=== PATIENT | male | born 2005 | race Caucasian/White ===

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

== ENCOUNTER 2024-01-07 14:40 | Emergency (ER) | payer MEDICAID, SELFPAY ==
[2024-01-07 14:48] VITALS: BP 152/83; PULSE 110; RESP 16; TEMP 38.3; O2SAT 96
--- NOTE | 2024-01-07 15:06 | W.ED.GENAD ---
Discharge Plan Disposition Patient Disposition: Home Condition: Stable Discharge Details Clinical Impression: Groin rash Primary Care Provider: Unknown,Unknown ED Provider: Veronica Agudelo Home Meds and New Rx's Prescriptions: No Action No Known Home Meds Discharge Instructions Instructions: Skin Rash ED Additional Instructions: You were seen in the emergency department today for evaluation of a groin rash and for STI testing. In our department you have a full physical examination performed, your rash is most concerning for a friction type rash, it does not appear consistent with herpes virus. Your STI testing will take several days to result, and I have provided you with a referral to establish with a primary care provider to review the results of these tests with you. You can utilize an ointment to reduce friction in that area, I recommend Vaseline or Aquaphor. I do recommend that if you continue to engage in sexual intercourse that you utilize a barrier method to prevent the spread of STIs. You had a low-grade fever today in the emergency department that resolved with medication, please monitor for symptoms and follow-up with your primary care provider with any concerns. Thank you for allowing us to be part of your care. HPI General Mode of arrival: ambulatory. Date/Time Provider Initiated Documentation: 01/07/24 14:42. Limitations to Documentation: no limitations. Information obtained by: patient and old records reviewed. HPI Narrative: HPI: This is a 18-year-old male patient without significant past medical history presenting for evaluation of a groin rash. The patient reports that this rash has been present for the last 2 to 3 weeks, is located on the inner aspect of his bilateral thighs. He reports that he presented to care for STI evaluation, as he is concerned because the person that he had sex with is reported to him by other people as being positive for herpes. He reports that he has not noted any vesicular or weeping lesions. He has not had any penile discharge, dysuria, or penile lesions. He states that he has had sex with 4 different women over the last few months, does not utilize barrier protection. the patient was noted incidentally to be mildly tachycardic and of a low-grade temperature in our triage office, states that he does not feel unwell, and specifically denies headache, stuffy or runny nose, sore throat, shortness of breath, cough, or abdominal pain. The patient reports that he occasionally will shave his genital region, does not utilize any creams or ointments. He has not tried any barrier creams for the rash on his thighs. Exam: Gen: Awake and alert, in no apparent distress HEENT: Non-icteric sclera Neck: Supple Lungs: No apparent respiratory distress, normal respiratory effort. CV: Appears well perfused Abdomen: Non-distended : Normal external male genitalia, bilaterally descended testicles that are nontender. The patient does have a flesh-colored raised papule on his left scrotum that he reports is baseline. He has a fine red rash, which appears similar to a friction rash on his bilateral thighs. There are no vesicular lesions, ulcerations, nor inguinal lymphadenopathy appreciated. MSK: Moves 4 extremities without apparent limitation in ROM Skin: Visualized skin without rashes, cyanosis. Neuro: Normal Gait, no obvious focal deficits or facial asymmetry. Speaks in full, clear sentences. Psych: Appropriate for situation. MDM: This is a 18-year-old male patient presenting for evaluation for STI screening for a groin rash. I am most concerned for a friction rash versus folliculitis. I certainly considered sexually transmitted infections, including herpes, syphilis, HIV, gonorrhea, and chlamydia. The patient's mild tachycardia and fever are not connected with any localizing symptoms to suggest urinary tract infection, viral upper respiratory infection. The patient has been eating and drinking normally, making metabolic and electrolyte derangements, kidney injury less likely. We will obtain laboratory screening for HIV and syphilis, as well as a gonorrhea and chlamydia test. I did provide the patient with a dose of Tylenol for symptomatic management of pain. I do not see any indication at this time for additional laboratory studies given the patient's asymptomatic nature. ED Course: I recommended that the patient utilize a barrier ointment such as Aquaphor or Vaseline on the irritated areas. I did recommend barrier protection during sex, and did provide the patient with a PCP referral for routine follow-up. We rechecked to the vital signs, and the patient's low-grade fever and tachycardia have already resolved despite only recently being administered antipyretics. At this time, the patient has had a full medical evaluation and is safe for discharge to home. They are hemodynamically stable, ambulatory, and tolerating PO. They are understanding of the follow-up plan and return precautions. They left our facility without incident. Veronica Agudelo MD Related Data Home Medications ?Medication ?Instructions ?Recorded ?Confirmed Unknown [No Known Home Meds] 12/05/21 01/07/24 Allergies Allergy/AdvReac Type Severity Reaction Status Date / Time lactose AdvReac Mild affects Unverified 01/07/24 14:52 bowels per mom General Stated Complaint: GenMedical YASMINE: 4 Course Vital Signs Vital signs: Vital Signs Temperature 38.3 C H 01/07/24 14:48 Pulse 110 H 01/07/24 14:48 Respiratory Rate 16 01/07/24 14:48 Blood Pressure 152/83 H 01/07/24 14:48 Pulse Oximetry 96 01/07/24 14:48 Temperature 38.3 C H 01/07/24 14:48 Pulse 110 H 01/07/24 14:48 Respiratory Rate 16 01/07/24 14:48 Respiratory Effort Normal 01/07/24 14:53 Blood Pressure 152/83 H 01/07/24 14:48 Pulse Oximetry 96 01/07/24 14:48 Oxygen Delivery Method Room Air 01/07/24 14:48 Oxygen Flow Rate 0 01/07/24 14:48 Pain Level 0 01/07/24 14:48 Medical Decision Making Quality:SDOH Health Related Social Needs: No Data to Display PFSH All Active Problems (Updated 01/07/24 @ 15:21 by Veronica Agudelo MD) Groin rash (Acute) Marijuana use (Acute) Difficulty controlling anger (Acute) Constipation (Acute) Alcohol use (Chronic) Caught drinking alcohol in the spring 2020- expelled from [facility]; was arrested and entered into diversion (will be meeting with counselor instead of paying fines) Family discord (Chronic) Engages in vaping (Chronic) Wheezing (Acute) Varicocele (Chronic) Followed by Urology yearly- last visit Apr 2020; no surgical intervention recommended at this time Learning difficulty (Chronic 01/19/12) Unclear if he has had an IEP for additional instruction; failed 10th grade and was expelled from [facility] [facility] Lactose intolerance (Chronic 11/21/17) Dental caries (Chronic 01/19/12) Surgical History Appendectomy Appendicitis History of Surgical Procedure a. Appendectomy lap. 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
[2024-01-07 15:17] VITALS: BP 144/74; PULSE 96; RESP 16; TEMP 37.3; O2SAT 97
[2024-01-07] MEDS: Acetaminophen 500 MG TAB 1000 MG PO (16:27)
[2024-01-07 16:31] VITALS: BP 144/74; PULSE 76; RESP 16; TEMP 37.3; O2SAT 97
[2024-01-07 16:33] VITALS: BP 144/74; PULSE 76; RESP 16; TEMP 37.3; O2SAT 97
[2024-01-08 19:28] LABS: HIV-1/2 Ag & Ab Screen Negative (Negative)
[2024-01-09 11:07] LABS: Syphilis Serology (RPR) Positive (Negative)
[2024-01-09 12:23] LABS: Chlamydia Result Negative (Negative); GC Result Negative (Negative)
[2024-01-11 11:51] LABS: RPR w/Reflex Negative (Negative)
[2024-01-11 16:08] LABS: Syphilis Ab, TP-PA Negative (Negative)
== END 2024-01-07 16:34 | disposition home or self-care (01) ==
PROVIDERS: Emergency Provider Emergency Medicine
DX: R21 Rash and other nonspecific skin eruption (principal); R50.9 Fever, unspecified; Z20.2 Contact with and (suspected) exposure to infections with a predominantly sexual mode of transmission
CPT/HCPCS: 0064U; 86780; 87389; 87491; 87591; 99282; 86592; 99283

== ENCOUNTER 2024-07-26 15:13 | Outpatient (REF) | payer SELFPAY ==
[2024-07-29 12:48] LABS: Chlamydia Result Negative (Negative); GC Result Negative (Negative)
== END 2024-07-26 15:14 | disposition home or self-care (01) ==
LOC: LBN 15:13
PROVIDERS: Visit Provider Urology
DX: Z20.2 Contact with and (suspected) exposure to infections with a predominantly sexual mode of transmission (principal); I86.1 Scrotal varices
CPT/HCPCS: 87491; 87591

== ENCOUNTER 2024-12-16 15:20 | Inpatient (IN) | payer SELFPAY ==
[2024-12-16] VITALS (49 sets, daily range): BP systolic 127–156; BP diastolic 58–103; PULSE 54–127; RESP 9–34; TEMP 36.6–37; O2SAT 85–100
--- NOTE | 2024-12-16 15:46 | W.ED.GENAD ---
Discharge Plan Disposition Patient Disposition: Admit to [facility] Condition: Stable Discharge Details Clinical Impression: Alcohol withdrawal, Hypophosphatemia, Hypomagnesemia, Lactic acidosis Primary Care Provider: Unknown,Unknown ED Provider: Jose Sanchez Home Meds and New Rx's Prescriptions: No Action No Known Home Meds HPI General Date/Time Provider Initiated Documentation: 12/16/24 15:38. HPI Narrative: 19 year-old male presents to ED today by POV/ambulating with his girlfriend with a chief complaint of abdominal pain, nausea/vomiting, alcohol withdrawal with onset over the past couple days- last drink last night at 0100- states he's had 1.5gal of hard alcohol in the last 3 days. Has been drinking daily for a couple years. Quality described as shakiness, intractable vomiting, RUQ abdominal pain, no radiation to fever, witnessed seizure-like activity, shortness of breath, chest pain, dysuria, flank pain. Severity is described as 10/10. Palliating factors include nothing specific attempted- he did cessate smoking weed which is also a daily habit since Monday. Provoking factors include PO intake. Patient not anticoagulated. Related Data Home Medications ?Medication ?Instructions ?Recorded ?Confirmed Unknown [No Known Home Meds] 12/05/21 12/16/24 Allergies Allergy/AdvReac Type Severity Reaction Status Date / Time lactose AdvReac Mild affects Unverified 12/16/24 15:29 bowels per mom General Stated Complaint: Abd Prob YASMINE: 3 Review of Systems All systems reviewed & are unremarkable except as noted in HPI and below Exam Narrative Exam Narrative: GENERAL APPEARANCE: Malnourished, toxic, awake and alert, atraumatic, moderate acute distress- active retching. SKIN: Warm, pale, diaphoretic, intact, without rashes/lesions/ulcerations. HEAD: Normocephalic, atraumatic, normal hair distribution for gender/age. EYES: Normal conjunctiva, no exudates on lids/lashes. ENT: Nares patent, no circumoral cyanosis, no facial swelling NECK: Supple, trachea midline, painless cervical ROM. LUNGS/CHEST: Lungs CTA bilaterally- no rhonchi/rales/wheezes diffusely, non-labored respirations, normal A/P diameter, symmetrical expansion, no chest wall deformity HEART (CV/PV): Regular rate and rhythm without murmur, no peripheral edema, no JVD. ABDOMEN: Soft, non-distended, no guarding, RUQ tenderness w/ Barahona's sign, no CVA tenderness to percussion bilaterally. MSK: Normal ROM, no swelling/deformity to bilateral UEs or LEs, moving all extremities without weakness, no cyanosis, spine midline without tenderness, normal curvature. NEURO: Mental Status AAOx4 - alert to person, place, time, events No facial droop, no forehead involvement. Motor: No focal weakness - strength 5/5 in bilateral UEs and LEs, proximal and distal, symmetric. Sensory: sensation intact to light touch globally. Gait normal: patient ambulated without ataxia into ED room. PSYCH: dysthymic, cooperative, pleasant, appropriate speech Course Vital Signs Vital signs: Vital Signs Temperature 36.8 C 12/16/24 15:23 Pulse 127 H 12/16/24 15:23 Respiratory Rate 20 12/16/24 15:23 Blood Pressure 133/83 12/16/24 15:23 Pulse Oximetry 98 12/16/24 15:23 Temperature 36.8 C 12/16/24 15:27 Pulse 127 H 12/16/24 15:27 Respiratory Rate 20 12/16/24 15:27 Blood Pressure 133/83 12/16/24 15:27 Blood Pressure Position Sitting 12/16/24 15:27 Pulse Oximetry 98 12/16/24 15:27 Oxygen Delivery Method Room Air 12/16/24 15:27 Oxygen Flow Rate 0 12/16/24 15:27 Medical Decision Making This dictation utilizes [id number] dictation software and may contain unedited grammatical errors. 19 year-old male presents to ED today by POV/ambulating with his girlfriend with a chief complaint of abdominal pain, nausea/vomiting, alcohol withdrawal with onset over the past couple days- last drink last night at 0100- states he's had 1.5gal of hard alcohol in the last 3 days. Has been drinking daily for a couple years. Quality described as shakiness, intractable vomiting, RUQ abdominal pain, no radiation to fever, witnessed seizure-like activity, shortness of breath, chest pain, dysuria, flank pain. Severity is described as 10/10. Palliating factors include nothing specific attempted- he did cessate smoking weed which is also a daily habit since Monday. Provoking factors include PO intake. Patients' medical history: Marijuana use, alcohol use disorder, varicocele. Family and social history: Daily heavy alcohol use, daily marijuana use, denies other substance use. Pertinent exam findings / vital signs include no delerium tremens, RUQ abdominal tenderness, + Barahona's sign, tachypneic without hypoxia, neuro intact. Differential / pathologies of concern include alcohol withdrawal, biliary colic, pancreatitis. Diagnostic studies of: -CBC, BMP, liver panel, CK, magnesium, phosphorus, lactate, lipase & amylase, VBG, troponin, alcohol level, acetaminophen/salicylate level, ammonia, EKG, CT ABD/Pelvis w Contrast. -CBC has a leukocytosis of 16.89 without left shift - CMP shows creatinine of 1.4 likely in setting of dehydration, calcium 10.5 likely in setting of hemoconcentration, anion gap of 16 - Magnesium 1.3, repleted IV - Liver panel shows elevated bilirubin at 2.0 with 0.4 conjugated bilirubin, LFTs otherwise within normal limits - Ammonia negative - Amylase and lipase negative - Salicylates and acetaminophen levels negative - Alcohol level negative - VBG shows a respiratory alkalosis likely due to his hyperventilation - Lactate 4.4 likely in the setting of acute intractable vomiting - Phos < 2 - CT ABD/Pelvis w contrast shows distended gallbladder without overt cholecystitis, no pancreatitis, incidental finding of cystic area in testes- has known variocele, needs PCP/Urology monitoring - EKG shows sinus rhythm at 73 bpm with P waves followed by a narrow complex QRS, normal axis, good R wave progression, some peaked T waves but likely due to body habitus being quite thin, normal intervals, no ST changes of ischemia no T wave inversions -UDS & UA pending Interventions of: -1L IVF Banana Bag, 4mg IVP Zofran, 5mg IVP valium, QID [id number], 2mg IV magnesium. -CIWA q1hr - intial was 20 -1g IV APAP, 15mg IVP ketorolac -Consult with Hospitalist Dr. Hanks for admission, accepted at 1900- ICU on phenobarbital drip ED Course/Assessment/Plan: 19-year-old male with alcohol use disorder for couple years has had 1.5 gallons of hard liquor in the past 3 days, last drink 0100 hrs., awoke this morning with intractable nausea and vomiting severe abdominal pain right upper quadrant, assumed he had pancreatitis quite severely but his lipase and amylase are normal, he has mildly elevated bilirubin at 2.0 with slight elevation of conjugated bilirubin that will likely resolve with time, his initial CIWA was 20 warranting admission to the hospital, I trialed him on IVP 5 mg Valium as we are out of Ativan due to drug shortage, he received antiemetics, electrolyte repletion and conservative pain control while in the department, discussed with hospitalist who accepted for admission to ICU, patient was open to consulting with job coach while here. He has an incidental finding on his CT of a cystic area in the testicles that warrants routine surveillance with a note in his history that he has a history of varicocele that is followed by urology, these may be the same finding. Disposition of Alcohol Withdrawal, Hypophosphatemia, Hypomagnesemia, Lactic Acidosis. Patient verbalized understanding of the plan and return to ED criteria and engaged in shared decision making. Medical Records Medical records reviewed: Yes I reviewed the patient's medical records. Imaging Data Radiologic Study: Attestation: I personally reviewed and interpreted this imaging study as follows: Imaging: CT Scan Radiologist's impression: EXAM: CT ABDOMEN PELVIS W CLINICAL HISTORY: RUQ tenderness. TECHNIQUE: Imaging Protocol: Axial computed tomography images with coronal and sagittal reformatted images were created and reviewed CONTRAST MATERIAL: Intravenous: Omnipaque-350 75cc Oral: None COMPARISON: No exams were available for comparison FINDINGS: VISUALIZED LUNG BASES: No nodules nor pleural effusions evident. ABDOMEN: There is no ascites. LIVER: There are no focal hepatic lesions evident. No dilated intrahepatic ducts. GALLBLADDER/BILIARY: Gallbladder is mildly distended. No obvious intraluminal gallstones nor gallbladder wall edema nor pericholecystic fluid. CBD is not dilated. PANCREAS: No evidence of pancreatic mass nor dilatation of the pancreatic duct. SPLEEN: Spleen is not enlarged. No obvious intrasplenic lesions. Splenic and portal veins are patent. ADRENALS: There are no significant adrenal masses. KIDNEYS:No cysts evident. No solid renal masses. No calculi nor hydronephrosis.. ABDOMINAL AORTA: Abdominal aorta is not enlarged. LYMPH NODES:There is no retroperitoneal nor paraaortic adenopathy. ABDOMINAL WALL: No evidence of significant anterior abdominal wall nor inguinal hernia. GI: There is no evidence of bowel obstruction, free air, nor abscess. PELVIS: GI: The appendix is difficult to identify is a separate structure. There is no obvious evidence of acute appendicitis.Also there is significant sigmoid diverticular disease. LYMPH NODES: There is no intrapelvic nor inguinal adenopathy. REPRODUCTIVE: Prostate size normal. Seminal vesicles unremarkable.x incidentally noted is a probable extratesticular cystic structure in the left hemiscrotum which measures 1.5 by 1.5 cm. This probably in epididymal head cyst URINARY BLADDER: No calculi nor obvious masses evident OSSEOUS: No fractures and no significant osseous lesions. No disc space narrowing. No listhesis. No facet arthropathy. IMPRESSION: 1. In this patient with right-sided abdominal pain the gallbladder slightly distended. No obvious radiopaque gallstones nor pericholecystic fluid. CBD is not dilated. If clinically indicated follow-up ultrasound the gallbladder can be performed. 2. There is a 15 x 15 mm cystic structure in the left hemiscrotum. This is probably an epididymal head cyst but should be further studied with the scrotal ultrasound for added specificity. 3. The appendix is not seen-identified. There is no evidence of obvious acute appendicitis. 4. No urinary tract calculi identified. No hydronephrosis. No hydroureter. No calculi nor other significant findings in the urinary bladder. Report called by myself to ER provider on 12/16/2024 at 6:18 p.m. Lab Data Lab results reviewed: Yes I reviewed the patient's lab results. Labs: Laboratory Tests Range/Units 12/16/24 12/16/24 12/16/24 16:08 16:15 16:48 WBC (4.4-10.8) 10^3/uL 16.89 H RBC (4.36-5.78) 10^6/uL 5.09 Hgb (13.5-17.5) g/dL 16.6 Hct (40.0-50.0) % 46.3 MCV (80-95) fL 91 MCH (27.0-33.0) pg 32.6 MCHC (32.0-36.0) % 35.9 RDW (11.8-14.1) % 11.1 L Plt Count (130-400) 10^3/uL 221 MPV (8.0-11.0) fL 10.5 Immature Gran % % 0.0 Neutrophils % % 82.0 Lymphocytes % % 9.0 Monocytes % % 9.0 Eosinophils % % 0.0 Basophils % % 0.0 Nucleated RBC % (0.0-0.3) % 0.0 Absolute Neutrophils (1.2-6.7) 10^3/uL 13.85 H Absolute Lymphocytes (1.2-3.4) 10^3/uL 1.52 Absolute Monocytes (0.1-0.8) 10^3/uL 1.52 H Absolute Eosinophils (0.0-0.7) 10^3/uL 0.00 Absolute Basophils (0.0-0.2) 10^3/uL 0.00 RBC Morphology Normal VBG pH (7.31-7.41) 7.56 H VBG pCO2 (41-51) mmHg 33 L VBG pO2 mmHg 28 VBG HCO3 (23-28) mmol/L 30 H VBG Total CO2 (24-29) mmol/L 25 VBG O2 Saturation % 61 VBG Base Excess (-2-3) mmol/L 7 H VBG Lactate (<or=2.0) mmol/L 4.4 H* Sodium (136-145) mmol/L 140 Potassium (3.5-5.1) mmol/L 3.9 Chloride (98-107) mmol/L 95 L Carbon Dioxide (21.0-32.0) mmol/L 28.9 Anion Gap (3-11) mmol/L 16.1 H BUN (7-18) mg/dL 11 Creatinine (0.70-1.30) mg/dL 1.4 H Est GFR (CKD-EPI 2020) (mL/min/1.73m2) 73.79 Glucose (74-106) mg/dL 126 H Calcium (8.5-10.1) mg/dL 10.5 H Phosphorus (2.6-4.7) mg/dL < 2.0 L Magnesium (1.8-2.4) mg/dL 1.3 L Total Bilirubin (0.2-1.0) mg/dL 2.0 H Conjugated Bilirubin (0.0-0.2) mg/dL 0.4 H AST (15-37) U/L 37 ALT (16-63) U/L 30 Alkaline Phosphatase (46-116) U/L 131 H Ammonia Cancelled 10 L Creatine Kinase (39-308) U/L 374 H Troponin I (<or=76) ng/L < 4 Total Protein (6.4-8.2) g/dL 9.4 H Albumin (3.4-5.0) g/dL 5.2 H Amylase (25-115) U/L 75 Lipase (<78) U/L 18 Salicylates (<2.8) mg/dL < 2.8 Acetaminophen (10-30) ug/mL < 2 Ethyl Alcohol (<10) mg/dL < 3.0 PFSH All Active Problems (Updated 12/16/24 @ 18:48 by FLORENCIO King) Lactic acidosis (Acute) Hypomagnesemia (Acute) Hypophosphatemia (Acute) Alcohol withdrawal (Acute) Marijuana use (Acute) Difficulty controlling anger (Acute) Constipation (Acute) Alcohol use (Chronic) Caught drinking alcohol in the spring 2020- expelled from [facility]; was arrested and entered into diversion (will be meeting with counselor instead of paying fines) Family discord (Chronic) Engages in vaping (Chronic) Wheezing (Acute) Varicocele (Chronic) Followed by Urology yearly- last visit Apr 2020; no surgical intervention recommended at this time Learning difficulty (Chronic 01/19/12) Unclear if he has had an IEP for additional instruction; failed 10th grade and was expelled from [facility] Lactose intolerance (Chronic 11/21/17) Dental caries (Chronic 01/19/12) Surgical History Appendectomy Appendicitis History of Surgical Procedure a. Appendectomy lap. 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 [employer] Pets and animals: Yes (Puppy.) Pets and animals: dog(s) Current gender identity: male Seatbelt use: always Helmet use: Yes Fire extinguisher in home: Yes Carbon monox detector in home: Yes Firearms in home: Yes Firearms unloaded and locked: Yes Do you feel safe at home: Yes Do you feel safe in your relationship?: Yes PAWSS Have you Been Recently Intoxicated or Drunk Within the Last 30 days?: Yes Have you Ever Experienced Previous Episodes of Alcohol Withdrawal?: No Have you ever Experienced Withdrawal Seizures?: No Have you ever Experienced Delirium Tremens(DT)s?: No Have you ever undergone Alcohol Rehabilitation Treatment (i.e, inpt ot outpatient treatment programs)?: No Have you ever Experienced Blackouts?: Yes Have you ever Combined Alcohol with other Downers within the last 90 days?: No Have you ever Combined Alcohol with any other Substance of Abuse during the last 90 days?: Yes Evidence of Increased Autonomic Activity (i.e. HR>120, tremor, sweating, agitation, nausea)?: Yes Result: 5
--- NOTE | 2024-12-16 16:00 | RT.EKG_ITS ---
APPROVED REPORT Exam: Resting ECG Reason for Exam: baseline/screening Patient Location: E HR:73 bpm ECG Measurements Heart Rate 73 AXIS TN 114 P 71 QRSd 103 QRS -4 QT 403 T 45 QTc 445 Conclusion Sinus rhythm...normal P axis, V-rate 60- 99 No Occlusion UT Short TN interval. No obvious delta wave. No prior for comparison.
[2024-12-16 16:14] LABS: BE (Venous) 7 mmol/L (-2-3); HCO3 (Venous) 30 mmol/L (23-28); HCT 46.3 % (40.0-50.0); HGB 16.6 g/dL (13.5-17.5); MCH 32.6 pg (27.0-33.0); MCHC 35.9 % (32.0-36.0); MCV 91 fL (80-95); MPV 10.5 fL (8.0-11.0); O2 Sat (Venous) 61 %; Platelet Count 221 10^3/uL (130-400); RBC 5.09 10^6/uL (4.36-5.78); RDW 11.1 % (11.8-14.1); RDW-SD 37.5 fL; TCO2 (Venous) 25 mmol/L (24-29); WBC 16.89 10^3/uL (4.4-10.8); pCO2 (Venous) 33 mmHg (41-51); pO2 (Venous) 28 mmHg
[2024-12-16 16:29] LABS: Immature Grans % 0.0 %
[2024-12-16 16:30] LABS: Abs Immature Grans 0.00 10^3/uL (0.0-0.06); RBC Morphology Normal
[2024-12-16] MEDS: diazePAM 10 MG/2 ML SYR 5 MG IVP (16:31)
[2024-12-16] MEDS: MULTIVITAMIN 10 ML, THIAMINE 100 MG, FOLIC ACID 1 MG in DEXTROSE 5%-0.45% SALINE 1,000 ML 42 ML IV (16:32)
[2024-12-16 16:34] LABS: Amylase 75 U/L (25-115); Creatine Kinase 374 U/L (39-308)
[2024-12-16 16:43] LABS: Acetaminophen < 2 ug/mL (10-30); Salicylate < 2.8 mg/dL (<2.8)
[2024-12-16 16:46] LABS: ALT 30 U/L (16-63); AST 37 U/L (15-37); Albumin 5.2 g/dL (3.4-5.0); Alkaline Phosphatase 131 U/L (46-116); Anion Gap 16.1 mmol/L (3-11); BUN 11 mg/dL (7-18); Bilirubin, Direct 0.4 mg/dL (0.0-0.2); Bilirubin, Total 2.0 mg/dL (0.2-1.0); CO2 28.9 mmol/L (21.0-32.0); Calcium 10.5 mg/dL (8.5-10.1); Chloride 95 mmol/L (98-107); Estimated GFR 73.79 (mL/min/1.73m2); Glucose 126 mg/dL (74-106); Lipase 18 U/L (<78); Magnesium 1.3 mg/dL (1.8-2.4); Potassium 3.9 mmol/L (3.5-5.1); Sodium 140 mmol/L (136-145); Total Protein 9.4 g/dL (6.4-8.2)
[2024-12-16 16:47] LABS: Troponin I < 4 ng/L (<or=76)
--- NOTE | 2024-12-16 17:00 | DI.CT_ITS ---
Exam(s) CT ABDOMEN PELVIS W EXAM: CT ABDOMEN PELVIS W CLINICAL HISTORY: RUQ tenderness. TECHNIQUE: Imaging Protocol: Axial computed tomography images with coronal and sagittal reformatted images were created and reviewed CONTRAST MATERIAL: Intravenous: Omnipaque-350 75cc Oral: None COMPARISON: No exams were available for comparison FINDINGS: VISUALIZED LUNG BASES: No nodules nor pleural effusions evident. ABDOMEN: There is no ascites. LIVER: There are no focal hepatic lesions evident. No dilated intrahepatic ducts. GALLBLADDER/BILIARY: Gallbladder is mildly distended. No obvious intraluminal gallstones nor gallbladder wall edema nor pericholecystic fluid. CBD is not dilated. PANCREAS: No evidence of pancreatic mass nor dilatation of the pancreatic duct. SPLEEN: Spleen is not enlarged. No obvious intrasplenic lesions. Splenic and portal veins are patent. ADRENALS: There are no significant adrenal masses. KIDNEYS:No cysts evident. No solid renal masses. No calculi nor hydronephrosis.. ABDOMINAL AORTA: Abdominal aorta is not enlarged. LYMPH NODES:There is no retroperitoneal nor paraaortic adenopathy. ABDOMINAL WALL: No evidence of significant anterior abdominal wall nor inguinal hernia. GI: There is no evidence of bowel obstruction, free air, nor abscess. PELVIS: GI: The appendix is difficult to identify is a separate structure. There is no obvious evidence of acute appendicitis.Also there is significant sigmoid diverticular disease. LYMPH NODES: There is no intrapelvic nor inguinal adenopathy. REPRODUCTIVE: Prostate size normal. Seminal vesicles unremarkable.x incidentally noted is a probable extratesticular cystic structure in the left hemiscrotum which measures 1.5 by 1.5 cm. This probably in epididymal head cyst URINARY BLADDER: No calculi nor obvious masses evident OSSEOUS: No fractures and no significant osseous lesions. No disc space narrowing. No listhesis. No facet arthropathy. IMPRESSION: 1. In this patient with right-sided abdominal pain the gallbladder slightly distended. No obvious radiopaque gallstones nor pericholecystic fluid. CBD is not dilated. If clinically indicated follow-up ultrasound the gallbladder can be performed. 2. There is a 15 x 15 mm cystic structure in the left hemiscrotum. This is probably an epididymal head cyst but should be further studied with the scrotal ultrasound for added specificity. 3. The appendix is not seen-identified. There is no evidence of obvious acute appendicitis. 4. No urinary tract calculi identified. No hydronephrosis. No hydroureter. No calculi nor other significant findings in the urinary bladder. Report called by myself to ER provider on 12/16/2024 at 6:18 p.m. RADIATION DOSE DELIVERED: 301.94mGy.cm Total DLP DATA REPOSITORY: All CT scans at this facility are submitted to the National Radiology Data Registry (NRDR) Dose Index Registry (DIR) with the [employer] (ACR). RADIATION OPTIMIZATION: All CT scans at this facility use at least one of these dose optimization techniques: automated exposure control; mA and/or kV adjustment per patient size (includes targeted exams where dose is matched to clinical indication); or iterative reconstruction.
[2024-12-16 17:04] LABS: Ammonia 10 umol/L (11-32)
[2024-12-16] MEDS: Normal Saline Flush 10 ML SYR IVP (17:57)
[2024-12-16] MEDS: Normal Saline - Diluent 50 ML VIAL IJ (17:59)
[2024-12-16] MEDS: Omnipaque 350 MG/ML 100 ML BTL IJ (17:59)
[2024-12-16] MEDS: Ondansetron 4 MG/2 ML VIAL IVP (18:47)
[2024-12-16] MEDS: MAGNESIUM SULFATE 2 GM/50 ML BAG IV_INF (18:48)
--- NOTE | 2024-12-16 18:57 | W.PM.HP.N ---
Date of service: 12/16/24 Time of Service: 18:57 Assessment and Plan Assessment and plan (1) Alcohol withdrawal: Status: Acute Assessment and plan: - Patient had CIWA score of about 20 in the emergency department - Did receive 1 dose of Valium - Will be admitted and placed on phenobarbital protocol (2) ARNALDO (acute kidney injury): Status: Acute Assessment and plan: - Secondary to alcohol use, nausea and vomiting - Status post IV fluids - Follow-up a.m. BMP (3) Lactic acidosis: Status: Acute Assessment and plan: - Secondary to alcohol use, 4.4 in the emergency department - Status post IV fluids - Follow-up a.m. lactic History of Present Illness History of Present Illness Chief Complaint: Nausea, vomiting, right upper quadrant pain Narrative: 19-year-old male with significant medical history of 5 years of serious alcohol use disorder presents to the emergency department with nausea vomiting right upper quadrant pain. Patient states he drinks about a gallon and a half of hard liquor over the last 3 days with his last drink being at 1 AM on 12/16/2024. He woke later in the morning with intractable nausea and vomiting with severe abdominal pain in the right upper quadrant. He states that he does have a history of withdrawal but denies withdrawal seizures. He denies any fever, lightheadedness, dizziness, chest pain. In the emergency department the patient was noted as being tachycardic with otherwise normal vital signs. CBC showed white blood cell count of 16 without a left shift, and CMP showed ARNALDO with a creatinine of 1.4, likely in the setting of alcohol use disorder, nausea vomiting and dehydration. Lipase was negative as well as alcohol level, and initial lactic was 4.4. Patient had CT abdomen pelvis with contrast that showed a distended gallbladder with no cholecystitis, no pancreatitis. While in the emergency department the patient was given Valium, emergency room provider paged hospitalist for admission for patient with alcohol withdrawal, ARNALDO and lactic acidosis. Review of Systems All systems reviewed & are unremarkable except as noted in HPI and below PFSH All Active Problems (Updated 12/16/24 @ 20:11 by MISTY VILLELA) ARNALDO (acute kidney injury) (Acute) Lactic acidosis (Acute) Hypomagnesemia (Acute) Hypophosphatemia (Acute) Alcohol withdrawal (Acute) Marijuana use (Acute) Difficulty controlling anger (Acute) Constipation (Acute) Alcohol use (Chronic) Caught drinking alcohol in the spring 2020- expelled from [facility]; was arrested and entered into diversion (will be meeting with counselor instead of paying fines) Family discord (Chronic) Engages in vaping (Chronic) Wheezing (Acute) Varicocele (Chronic) Followed by Urology yearly- last visit Apr 2020; no surgical intervention recommended at this time Learning difficulty (Chronic 01/19/12) Unclear if he has had an IEP for additional instruction; failed 10th grade and was expelled from [facility] Lactose intolerance (Chronic 11/21/17) Dental caries (Chronic 01/19/12) Surgical History Appendectomy Appendicitis History of Surgical Procedure a. Appendectomy lap. 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 [employer] Pets and animals: Yes (Puppy.) Pets and animals: dog(s) Current gender identity: male Seatbelt use: always Helmet use: Yes Fire extinguisher in home: Yes Carbon monox detector in home: Yes Firearms in home: Yes Firearms unloaded and locked: Yes Do you feel safe at home: Yes Do you feel safe in your relationship?: Yes Meds Allergies and Home Medications Allergies Allergy/AdvReac Type Severity Reaction Status Date / Time lactose AdvReac Mild affects Unverified 12/16/24 15:29 bowels per mom Home Medications ?Medication ?Instructions ?Recorded ?Confirmed ?Type Unknown [No Known Home Meds] 12/05/21 12/16/24 History Exam Narrative Exam Narrative: Anxious appearing young gentleman laying in bed in no acute distress, ANO x 4, heart regular rhythm, lungs, auscultation bilaterally, abdomen soft, nontender, nondistended Results Labs 12/16/24 16:08 12/16/24 16:08 Labs: Laboratory Results - last 24 hr 12/16/24 12/16/24 12/16/24 16:08 16:15 16:48 WBC 16.89 H RBC 5.09 Hgb 16.6 Hct 46.3 MCV 91 MCH 32.6 MCHC 35.9 RDW 11.1 L Plt Count 221 MPV 10.5 Immature Gran % 0.0 Neutrophils % 82.0 Lymphocytes % 9.0 Monocytes % 9.0 Eosinophils % 0.0 Basophils % 0.0 Nucleated RBC % 0.0 Absolute Neutrophils 13.85 H Absolute Lymphocytes 1.52 Absolute Monocytes 1.52 H Absolute Eosinophils 0.00 Absolute Basophils 0.00 RBC Morphology Normal VBG pH 7.56 H VBG pCO2 33 L VBG pO2 28 VBG HCO3 30 H VBG Total CO2 25 VBG O2 Saturation 61 VBG Base Excess 7 H VBG Lactate 4.4 H* Sodium 140 Potassium 3.9 Chloride 95 L Carbon Dioxide 28.9 Anion Gap 16.1 H BUN 11 Creatinine 1.4 H Est GFR (CKD-EPI 2020) 73.79 Glucose 126 H Calcium 10.5 H Phosphorus < 2.0 L Magnesium 1.3 L Total Bilirubin 2.0 H Conjugated Bilirubin 0.4 H AST 37 ALT 30 Alkaline Phosphatase 131 H Ammonia Cancelled 10 L Creatine Kinase 374 H Troponin I < 4 Total Protein 9.4 H Albumin 5.2 H Amylase 75 Lipase 18 Salicylates < 2.8 Acetaminophen < 2 Ethyl Alcohol < 3.0 Last Vital Signs Temp 98.3 F 12/16/24 15:27 Pulse 127 H 12/16/24 15:27 Resp 20 12/16/24 15:27 BP 133/83 12/16/24 15:27 Pulse Ox 98 12/16/24 15:27 PAWSS Have you Been Recently Intoxicated or Drunk Within the Last 30 days?: Yes Have you Ever Experienced Previous Episodes of Alcohol Withdrawal?: No Have you ever Experienced Withdrawal Seizures?: No Have you ever Experienced Delirium Tremens(DT)s?: No Have you ever undergone Alcohol Rehabilitation Treatment (i.e, inpt ot outpatient treatment programs)?: No Have you ever Experienced Blackouts?: Yes Have you ever Combined Alcohol with other Downers within the last 90 days?: No Have you ever Combined Alcohol with any other Substance of Abuse during the last 90 days?: Yes Evidence of Increased Autonomic Activity (i.e. HR>120, tremor, sweating, agitation, nausea)?: Yes Result: 5 Time Spent Time spent with Patient: >75 minutes Time was spent: preparing to see the patient(eg.review tests), obtaining and/or reviewing separately otained hiistory, ordering medications,tests, procedures, referring, communicating with other health healthcare applications analyst, indepentently interpreting results, counseling the patient and care coordination
[2024-12-16] MEDS: ACETAMINOPHEN 1,000 MG/100 ML BAG 400 MG IVPB (19:26)
[2024-12-16] MEDS: Ketorolac 15 MG/ML VIAL IVP (19:27)
--- NOTE | 2024-12-16 20:05 | W.PC.ACHO ---
Registration Status: REG ER Primary Language: Preferred Language: Slovenian ED Information & Data Chief Complaint Abd Prob 12/16/24 15:49 Triage Note 10 of 10 stabbing pain upper 12/16/24 15:23 R abd area since waking up this morning. PT reports drinks every day. Last drink at 0100 today. Normally smokes weed every day, has not been smoking since monday. Persistent nausea with no apparent means of improvement. (Last Reviewed 03/16/22 @ 16:36 by FLORENCIO Trujillo) Appendectomy Appendicitis History of Surgical Procedure Most Recent Vital Signs Temperature 36.8 C 12/16/24 15:27 Pulse 82 12/16/24 19:50 Pulse 81 12/16/24 19:50 Respiratory Rate 15 12/16/24 19:50 Respiratory Pattern Normal 12/16/24 16:15 Blood Pressure 156/83 H 12/16/24 19:46 Blood Pressure Mean 110 12/16/24 19:46 Blood Pressure Position Sitting 12/16/24 15:27 Pulse Oximetry 98 12/16/24 19:50 Oxygen Delivery Method Room Air 12/16/24 15:27 Oxygen Flow Rate 0 12/16/24 15:27 Pain Level 8 12/16/24 19:27 Allergies lactose Adverse Reaction (Mild, Unverified 12/16/24 15:29) affects bowels per mom Active Medications Generic Name Dose Route Start Last Admin Trade Name Freq PRN Reason Stop Dose Admin Multivitamins 10 ml/ Thiamine 1,011.2 mls @ 42 mls/hr 12/16/24 16:05 12/16/24 16:32 HCl 100 mg/ Folic Acid 1 mg/ IV 42 mls/hr Dextrose/Sodium Chloride DAILY KD Administration Iohexol 100 ml 12/16/24 18:00 12/16/24 17:59 Omnipaque 350 Mg/Ml 100 Ml Btl IJ 01/15/25 23:59 75 ml DIRECTED KD Administration Sodium Chloride 0 ml 12/16/24 17:56 12/16/24 17:57 Normal Saline Flush 10 Ml Syr IVP 10 ml PRN PRN Administration Sodium Chloride 50 ml 12/16/24 18:00 12/16/24 17:59 Normal Saline - Diluent 50 Ml Vial IJ 50 ml DIRECTED KD Administration IV IV Catheter Type [Left Saline Lock Antecubital] IV Catheter Type [Right Saline Lock Antecubital] IV Catheter Gauge [Left 18 Antecubital] IV Catheter Gauge [Right 18 Antecubital] Diagnostics 12/16/24 12/16/24 12/16/24 Range/Units 20:01 16:48 16:15 WBC (4.4-10.8) 10^3/uL RBC (4.36-5.78) 10^6/uL Hgb (13.5-17.5) g/dL Hct (40.0-50.0) % MCV (80-95) fL MCH (27.0-33.0) pg MCHC (32.0-36.0) % RDW (11.8-14.1) % Plt Count (130-400) 10^3/uL MPV (8.0-11.0) fL Immature Gran % % Neutrophils % % Lymphocytes % % Monocytes % % Eosinophils % % Basophils % % Nucleated RBC % (0.0-0.3) % Absolute Neutrophils (1.2-6.7) 10^3/uL Absolute Lymphocytes (1.2-3.4) 10^3/uL Absolute Monocytes (0.1-0.8) 10^3/uL Absolute Eosinophils (0.0-0.7) 10^3/uL Absolute Basophils (0.0-0.2) 10^3/uL RBC Morphology VBG pH (7.31-7.41) VBG pCO2 (41-51) mmHg VBG pO2 mmHg VBG HCO3 (23-28) mmol/L VBG Total CO2 (24-29) mmol/L VBG O2 Saturation % VBG Base Excess (-2-3) mmol/L VBG Lactate (<or=2.0) mmol/L Sodium (136-145) mmol/L Potassium (3.5-5.1) mmol/L Chloride (98-107) mmol/L Carbon Dioxide (21.0-32.0) mmol/L Anion Gap (3-11) mmol/L BUN (7-18) mg/dL Creatinine (0.70-1.30) mg/dL Est GFR (CKD-EPI 2020) (mL/min/1.73m2) Glucose (74-106) mg/dL Calcium (8.5-10.1) mg/dL Phosphorus (2.6-4.7) mg/dL Magnesium (1.8-2.4) mg/dL Total Bilirubin (0.2-1.0) mg/dL Conjugated Bilirubin (0.0-0.2) mg/dL AST (15-37) U/L ALT (16-63) U/L Alkaline Phosphatase (46-116) U/L Ammonia 10 L Cancelled Creatine Kinase (39-308) U/L Troponin I (<or=76) ng/L Total Protein (6.4-8.2) g/dL Albumin (3.4-5.0) g/dL Amylase (25-115) U/L Lipase (<78) U/L Urine Color Pending Urine Clarity Pending Urine pH Pending Ur Specific [place] Pending Urine Protein Pending Urine Ketones Pending Urine Blood Pending Urine Nitrite Pending Urine Bilirubin Pending Urine Urobilinogen Pending Ur Leukocyte Esterase Pending Urine Glucose Pending Salicylates (<2.8) mg/dL Urine Opiates Screen Pending Acetaminophen (10-30) ug/mL Ur Barbiturates Screen Pending Ur Tricyclics Screen Pending Ur Amphetamines Screen Pending U Benzodiazepines Scrn Pending Urine Cocaine Screen Pending Ur THC Screen Pending Ethyl Alcohol (<10) mg/dL 12/16/24 Range/Units 16:08 WBC 16.89 H (4.4-10.8) 10^3/uL RBC 5.09 (4.36-5.78) 10^6/uL Hgb 16.6 (13.5-17.5) g/dL Hct 46.3 (40.0-50.0) % MCV 91 (80-95) fL MCH 32.6 (27.0-33.0) pg MCHC 35.9 (32.0-36.0) % RDW 11.1 L (11.8-14.1) % Plt Count 221 (130-400) 10^3/uL MPV 10.5 (8.0-11.0) fL Immature Gran % 0.0 % Neutrophils % 82.0 % Lymphocytes % 9.0 % Monocytes % 9.0 % Eosinophils % 0.0 % Basophils % 0.0 % Nucleated RBC % 0.0 (0.0-0.3) % Absolute Neutrophils 13.85 H (1.2-6.7) 10^3/uL Absolute Lymphocytes 1.52 (1.2-3.4) 10^3/uL Absolute Monocytes 1.52 H (0.1-0.8) 10^3/uL Absolute Eosinophils 0.00 (0.0-0.7) 10^3/uL Absolute Basophils 0.00 (0.0-0.2) 10^3/uL RBC Morphology Normal VBG pH 7.56 H (7.31-7.41) VBG pCO2 33 L (41-51) mmHg VBG pO2 28 mmHg VBG HCO3 30 H (23-28) mmol/L VBG Total CO2 25 (24-29) mmol/L VBG O2 Saturation 61 % VBG Base Excess 7 H (-2-3) mmol/L VBG Lactate 4.4 H* (<or=2.0) mmol/L Sodium 140 (136-145) mmol/L Potassium 3.9 (3.5-5.1) mmol/L Chloride 95 L (98-107) mmol/L Carbon Dioxide 28.9 (21.0-32.0) mmol/L Anion Gap 16.1 H (3-11) mmol/L BUN 11 (7-18) mg/dL Creatinine 1.4 H (0.70-1.30) mg/dL Est GFR (CKD-EPI 2020) 73.79 (mL/min/1.73m2) Glucose 126 H (74-106) mg/dL Calcium 10.5 H (8.5-10.1) mg/dL Phosphorus < 2.0 L (2.6-4.7) mg/dL Magnesium 1.3 L (1.8-2.4) mg/dL Total Bilirubin 2.0 H (0.2-1.0) mg/dL Conjugated Bilirubin 0.4 H (0.0-0.2) mg/dL AST 37 (15-37) U/L ALT 30 (16-63) U/L Alkaline Phosphatase 131 H (46-116) U/L Ammonia Creatine Kinase 374 H (39-308) U/L Troponin I < 4 (<or=76) ng/L Total Protein 9.4 H (6.4-8.2) g/dL Albumin 5.2 H (3.4-5.0) g/dL Amylase 75 (25-115) U/L Lipase 18 (<78) U/L Urine Color Urine Clarity Urine pH Ur Specific [place] Urine Protein Urine Ketones Urine Blood Urine Nitrite Urine Bilirubin Urine Urobilinogen Ur Leukocyte Esterase Urine Glucose Salicylates < 2.8 (<2.8) mg/dL Urine Opiates Screen Acetaminophen < 2 (10-30) ug/mL Ur Barbiturates Screen Ur Tricyclics Screen Ur Amphetamines Screen U Benzodiazepines Scrn Urine Cocaine Screen Ur THC Screen Ethyl Alcohol < 3.0 (<10) mg/dL Intake and Output - 24 Hour Total 12/16/24 15:20 thru 12/16/24 15:23 Weight 77.111 kg Falls Risk Assessment History of Falls No History 12/16/24 15:27 Contributing Factors No Factors 12/16/24 15:27 Ambulatory Aids Independent 12/16/24 15:27 Tubes/Lines None 12/16/24 15:27 Gait Evaluation No gait disturbance 12/16/24 15:27 Cognition No cognitive impairment 12/16/24 15:27 Fall Total Score 0 12/16/24 15:27 Level of Risk Standard/Low Risk 12/16/24 15:27 Problems (Last Reviewed 03/16/22 @ 16:36 by FLORENCIO Trujillo) ARNALDO (acute kidney injury) (Acute) Lactic acidosis (Acute) Alcohol withdrawal (Acute) v v v v v v v v v Sending and/or Receiving Nurses: Please use comment section below to note any information pertinent to the patient hand-off not included above. Information / Comments: Report received from: Maggie KAUR
[2024-12-16 20:29] LABS: Glucose Negative (Negative)
[2024-12-16 20:35] LABS: C & S Indicated? No; WBC 0-2 HPF (0-5)
[2024-12-16 20:40] LABS: Cannabinoids THC Positive (Negative); METHADONE URINE SCREEN Negative (Negative)
[2024-12-16] MEDS: Nicotine 21 MG/24 HR PATCH TD (22:02)
[2024-12-16] MEDS: PHENobarbital 130 MG/ML VIAL IVP (22:06)
[2024-12-17] VITALS (18 sets, daily range): BP systolic 114–137; BP diastolic 79–100; PULSE 55–82; RESP 12–23; TEMP 37.1–37.2; O2SAT 95–98
[2024-12-17 05:35] LABS: HCT 44.2 % (40.0-50.0); HGB 15.5 g/dL (13.5-17.5); MCH 32.8 pg (27.0-33.0); MCHC 35.1 % (32.0-36.0); MCV 93 fL (80-95); MPV 10.8 fL (8.0-11.0); Platelet Count 180 10^3/uL (130-400); RBC 4.73 10^6/uL (4.36-5.78); RDW 11.4 % (11.8-14.1); RDW-SD 39.2 fL; WBC 11.92 10^3/uL (4.4-10.8)
[2024-12-17 05:45] LABS: Anion Gap 8.4 mmol/L (3-11); BUN 13 mg/dL (7-18); CO2 32.6 mmol/L (21.0-32.0); Calcium 9.7 mg/dL (8.5-10.1); Chloride 96 mmol/L (98-107); Estimated GFR 98.56 (mL/min/1.73m2); Glucose 104 mg/dL (74-106); Potassium 3.6 mmol/L (3.5-5.1); Sodium 137 mmol/L (136-145)
--- NOTE | 2024-12-17 08:28 | INITIAL_ITS ---
Date of service: 12/17/24 Time of Service: 08:28 Care Management Initial Assmt Initial Assessment Reason for Hospitalization: ETOH Withdrawal Functional Status/Living Situation Patient Presentation: Charly was awake and lying in bed when CM met with him. He reports that he lives alone in [place], works days at [employer] and does not currently drive. He relies on his father (Kartik) or girlfriend (Sherry) for transportation. Per pt, he does not communicate with his mother. Charly is admitted for ETOH withdrawal and per patients report, he has struggled with alcohol use for several years and during this conversation he acknowledged that it's probably time to do something about it. He is unfamiliar with local sobriety supports; and with patients consent CM placed a referral to [facility]. Patient met with a process coach and was provided with sobriety resources and has a plan to follow up with [facility] after discharge. Also, Charly is currently in self-pay status as he does not have active health care coverage; per pt the last he knew was on Medicaid. Patient does not have a PCP and reported that he was last seen by Pediatrics several years ago a nd never established care with another PCP when he became of age. CM provided pt with a list of local PCP's and sent a referral to [facility] for assistance with community needs. CM will follow. Town of Residence: [facility] Resides with: Alone Significant Other/Family: Local Natural Supports: Girlfriend Sherry Father Kartik (and S/O Nicol) Per pt, he does not have a relationship with his mother (Radha Lopez.) Employment Status: Employed ([employer]) Instrumental Activities of Daily Living (ADLs): Independent Medications Medication Management: Issues/Barriers with Obtaining (Does not have healthcare coverage at this time.) and Cost Physical Functioning/Mobility Assistive Device: None Advance Directives Advance Directives: Do you have an Advance Directive: N , 13:[address] [facility]: N 10/10/13, 12:21 Date Asked 12/16/24 12/16/24, 15:24 AD Date Reviewed COLST On File at [facility] COLST Date Scanned Code Status Resuscitation Status Full Code Portal Pt does not currently have a portal and education provided: Yes Insurance Coverage/Financial Issues Insurance: Self Pay Care Team Visit Care Team Role Provider Type Richard Ching MD [facility] STAFF PHYSICIAN Unknown Unknown Primary Care Provider STAFF PHYSICIAN FLORENCIO King Emergency Provider [facility] [employer] Eulalio Hanks MD Admit Provider [facility] STAFF PHYSICIAN Attending Provider Discharge Potential Discharge Needs: Consult Consult Services Needed: Other ([facility] ) and PCP F/U Appt Anticipated Barriers to Discharge: None Identified Patient/Family Education Needs: Review discharge instructions, discuss Ask Me Three Transportation: Private vehicle Plan: Anticipate, Charly will discharge home via private vehicle with family once medically cleared. He will follow up with community providers and continue per the established plan of care. In the absence of an established PCP, a T-DOC follow up will be offered. Outpatient follow up with [facility] is planned. Referral to [facility] was sent prior to discharge for support with community needs. CM will follow. Social Determinants of Health Screening Will the Patient Participate in the Screening?: Declined to provide PFSH All Active Problems (Updated 12/17/24 @ 13:36 by Richard Ching) Alcohol use disorder, severe, dependence (Acute) ARNALDO (acute kidney injury) (Acute) Lactic acidosis (Acute) Hypomagnesemia (Acute) Hypophosphatemia (Acute) Alcohol withdrawal (Acute) Marijuana use (Acute) Difficulty controlling anger (Acute) Constipation (Acute) Alcohol use (Chronic) Caught drinking alcohol in the spring 2020- expelled from [facility]; was arrested and entered into diversion (will be meeting with counselor instead of paying fines) Family discord (Chronic) Engages in vaping (Chronic) Wheezing (Acute) Varicocele (Chronic) Followed by Urology yearly- last visit Apr 2020; no surgical intervention recommended at this time Learning difficulty (Chronic 01/19/12) Unclear if he has had an IEP for additional instruction; failed 10th grade and was expelled from [facility] Lactose intolerance (Chronic 11/21/17) Dental caries (Chronic 01/19/12) Surgical History Appendectomy Appendicitis History of Surgical Procedure a. Appendectomy lap. 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
[2024-12-17] MEDS: Normal Saline Flush 10 ML SYR IVP (08:34)
[2024-12-17] MEDS: Enoxaparin 40 MG/0.4 ML SYR SC (08:35)
[2024-12-17] MEDS: MULTIVITAMIN 10 ML, THIAMINE 100 MG, FOLIC ACID 1 MG in DEXTROSE 5%-0.45% SALINE 1,000 ML 42 ML IV (08:36)
--- NOTE | 2024-12-17 13:23 | PGE_ITS ---
Date of Service Date of service: 12/17/24 Time of Service: 13:23 Assessment and Plan Assessment and plan (1) Alcohol withdrawal: Status: Acute Assessment and plan: - Patient had CIWA score of about 20 in the emergency department - Did receive 1 dose of diazepam, then placed on phenobarbital protocol. Has done well, downgrade to floor, transition to po. Follow up lytes and liver function. See below. (2) ARNALDO (acute kidney injury): Status: Acute Assessment and plan: - Secondary to alcohol use, nausea and vomiting - mild CPK elevation, but not c/w rhabdo. Get repeat. - Status post IV fluids - down to normal this morning (3) Lactic acidosis: Status: Acute Assessment and plan: - Secondary to alcohol use, 4.4 in the emergency department - Status post IV fluids - Follow-up a.m. lactic was not ordered with labs, but AG closing and clinic improvement is c/w resolution. (4) Alcohol use disorder, severe, dependence: Status: Acute Assessment and plan: Discussed diagnosis of alcohol use disorder/dependance. He isn't totally sure about this label, but is open to getting help. His GF is supportive and formerly worked at [employer]. He is open to transition coach. His mother actively using drugs, father alcohol so they seem to be of limited support. Subjective Subjective Patient reports: feels better and voiding w/o difficulty; denies vomiting, shortness of breath or fever Interval history since last seen: Slept overnight, not scoring on CIWA overnight after phenobarbital loading. He hasn't been hungry but feels like he could eat now. He confirms he hasn't gone without alcohol for years. Lives alone, father and MIL active heavy drinkers. Father and PGF with alpha-1 anti trypsin, he thinks they have liver disease. Exam Narrative Exam Narrative: Mildly anxious appearing young gentleman laying in bed in no acute distress, ANO x 4, heart regular rhythm, lungs, auscultation bilaterally, abdomen soft, nontender, nondistended. extremiites without edema, warm, no cyanosis. No tremor. No hallucinations. Objective Last Vital Signs Temp 37.1 C 12/17/24 08:15 Pulse 71 12/17/24 10:00 Resp 21 12/17/24 10:00 BP 135/90 12/17/24 08:15 Pulse Ox 97 12/17/24 10:00 Laboratory Results - last 24 hr 12/16/24 12/16/24 12/16/24 16:08 16:15 16:48 WBC 16.89 H RBC 5.09 Hgb 16.6 Hct 46.3 MCV 91 MCH 32.6 MCHC 35.9 RDW 11.1 L Plt Count 221 MPV 10.5 Immature Gran % 0.0 Neutrophils % 82.0 Lymphocytes % 9.0 Monocytes % 9.0 Eosinophils % 0.0 Basophils % 0.0 Nucleated RBC % 0.0 Absolute Neutrophils 13.85 H Absolute Lymphocytes 1.52 Absolute Monocytes 1.52 H Absolute Eosinophils 0.00 Absolute Basophils 0.00 RBC Morphology Normal VBG pH 7.56 H VBG pCO2 33 L VBG pO2 28 VBG HCO3 30 H VBG Total CO2 25 VBG O2 Saturation 61 VBG Base Excess 7 H VBG Lactate 4.4 H* Sodium 140 Potassium 3.9 Chloride 95 L Carbon Dioxide 28.9 Anion Gap 16.1 H BUN 11 Creatinine 1.4 H Est GFR (CKD-EPI 2020) 73.79 Glucose 126 H Calcium 10.5 H Phosphorus < 2.0 L Magnesium 1.3 L Total Bilirubin 2.0 H Conjugated Bilirubin 0.4 H AST 37 ALT 30 Alkaline Phosphatase 131 H Ammonia Cancelled 10 L Creatine Kinase 374 H Troponin I < 4 Total Protein 9.4 H Albumin 5.2 H Amylase 75 Lipase 18 Urine Color Urine Clarity Urine pH Ur Specific [place] Urine Protein Urine Ketones Urine Blood Urine Nitrite Urine Bilirubin Urine Urobilinogen Ur Leukocyte Esterase Urine RBC Urine WBC Ur Epithelial Cells Urine Crystals Urine Bacteria Urine Casts Urine Mucus Ur Culture Indicated? Urine Glucose Salicylates < 2.8 Urine Opiates Screen Urine Methadone Screen Acetaminophen < 2 Ur Barbiturates Screen Ur Tricyclics Screen Ur Amphetamines Screen U Benzodiazepines Scrn Urine Cocaine Screen Ur THC Screen Ethyl Alcohol < 3.0 12/16/24 12/17/24 20:16 05:34 WBC 11.92 H RBC 4.73 Hgb 15.5 Hct 44.2 MCV 93 MCH 32.8 MCHC 35.1 RDW 11.4 L Plt Count 180 MPV 10.8 Immature Gran % Neutrophils % Lymphocytes % Monocytes % Eosinophils % Basophils % Nucleated RBC % Absolute Neutrophils Absolute Lymphocytes Absolute Monocytes Absolute Eosinophils Absolute Basophils RBC Morphology VBG pH VBG pCO2 VBG pO2 VBG HCO3 VBG Total CO2 VBG O2 Saturation VBG Base Excess VBG Lactate Sodium 137 Potassium 3.6 Chloride 96 L Carbon Dioxide 32.6 H Anion Gap 8.4 BUN 13 Creatinine 1.1 Est GFR (CKD-EPI 2020) 98.56 Glucose 104 Calcium 9.7 Phosphorus Magnesium Total Bilirubin Conjugated Bilirubin AST ALT Alkaline Phosphatase [place] Creatine Kinase Troponin I Total Protein Albumin Amylase Lipase Urine Color Yellow Urine Clarity Clear Urine pH >= 9.0 H Ur Specific [place] 1.010 Urine Protein 100 H Urine Ketones 80 H Urine Blood Trace-intact H Urine Nitrite Negative Urine Bilirubin Small H Urine Urobilinogen 1.0 H Ur Leukocyte Esterase Negative Urine RBC 5-10 H Urine WBC 0-2 Ur Epithelial Cells Rare Urine Crystals Negative Urine Bacteria Rare Urine Casts Negative Urine Mucus Negative Ur Culture Indicated? No Urine Glucose Negative Salicylates Urine Opiates Screen Negative Urine Methadone Screen Negative Acetaminophen Ur Barbiturates Screen Negative Ur Tricyclics Screen Negative Ur Amphetamines Screen Negative U Benzodiazepines Scrn Positive A Urine Cocaine Screen Negative Ur THC Screen Positive A Ethyl Alcohol PAWSS Have you Been Recently Intoxicated or Drunk Within the Last 30 days?: Yes Have you Ever Experienced Previous Episodes of Alcohol Withdrawal?: No Have you ever Experienced Withdrawal Seizures?: No Have you ever Experienced Delirium Tremens(DT)s?: No Have you ever undergone Alcohol Rehabilitation Treatment (i.e, inpt ot outpatient treatment programs)?: No Have you ever Experienced Blackouts?: Yes Have you ever Combined Alcohol with other Downers within the last 90 days?: No Have you ever Combined Alcohol with any other Substance of Abuse during the last 90 days?: Yes Evidence of Increased Autonomic Activity (i.e. HR>120, tremor, sweating, agitation, nausea)?: Yes Result: 5 Time Spent with Patient Time Spent with Patient: 35-49 minutes Time was spent: preparing to see the patient(eg.review tests), obtaining and/or reviewing separately otained hiistory, ordering medications,tests, procedures, referring, communicating with other health career technical supervisor, indepentently interpreting results, counseling the patient and care coordination
[2024-12-18] VITALS: BP 128/76; PULSE 59; RESP 18
[2024-12-18 02:00] VITALS: PULSE 58; RESP 20
[2024-12-18 04:00] VITALS: PULSE 53; RESP 18
[2024-12-18 05:55] VITALS: BP 139/98; PULSE 55; PULSE 59; RESP 14
[2024-12-18 07:20] LABS: ALT 25 U/L (16-63); AST 32 U/L (15-37); Albumin 3.8 g/dL (3.4-5.0); Alkaline Phosphatase 95 U/L (46-116); Anion Gap 7.6 mmol/L (3-11); BUN 10 mg/dL (7-18); Bilirubin, Total 1.1 mg/dL (0.2-1.0); CO2 30.4 mmol/L (21.0-32.0); Calcium 9.6 mg/dL (8.5-10.1); Chloride 101 mmol/L (98-107); Creatine Kinase 317 U/L (39-308); Estimated GFR 110.50 (mL/min/1.73m2); Glucose 102 mg/dL (74-106); Magnesium 2.1 mg/dL (1.8-2.4); Potassium 3.6 mmol/L (3.5-5.1); Sodium 139 mmol/L (136-145); Total Protein 7.7 g/dL (6.4-8.2)
--- NOTE | 2024-12-18 08:42 | PDOC.CMDIS ---
Date of service: 12/18/24 Time of Service: 08:42 LACE Index Scoring Tool Questions: Length of Stay (in days): 2 Was the patient admitted via the E.D.?: Yes E.D. Visits: 1 Answers: Total Score: 6 Risk of Readmission: Low Risk Care Management Discharge Plan Reason for Hospitalization: ETOH Discharge Plan: Charly was discharged home via private vehicle with family. He will follow up with community providers and continue care as outlined in the discharge plan of care. Additional follow-up will include engaging with community supports for sobriety, support with healthcare coverage eligibility, and establishing care with a PCP. No new services were ordered before discharge. Patient/Family Education Needs: Review discharge instructions and plan to follow up after discharge. Discuss ask me three.
[2024-12-18] MEDS: Enoxaparin 40 MG/0.4 ML SYR SC (09:34)
[2024-12-18] MEDS: Thiamine 100 MG TAB PO (09:34)
[2024-12-18] MEDS: Folic Acid 1 MG TAB PO (09:34)
[2024-12-18] MEDS: Multivitamin TAB 1 TAB PO (09:34)
[2024-12-18 09:35] VITALS: BP 119/79; PULSE 51; PULSE 87; RESP 15; TEMP 36.8
--- NOTE | 2024-12-18 12:31 | DSE_ITS ---
Date of service: 12/18/24 Time of Service: 12:31 DS: Diagnosis Discharge Diagnosis (1) Alcohol withdrawal: Status: Acute (2) ARNALDO (acute kidney injury): Status: Acute (3) Lactic acidosis: Status: Acute (4) Alcohol use disorder, severe, dependence: Status: Acute Discharge Plan Disposition Patient Disposition: Home Condition: Good Discharge Details Reason For Visit: ETOH withdrawal Admit Date/Time: 12/16/24 18:57 Admit Provider: Eulalio Hanks Attending Provider: Eulalio Hanks Primary Care Provider: Unknown,Unknown Hospital Course Hospital Course: 19-year-old male with significant medical history of 5 years of alcohol use disorder and heavy daily use presented to the emergency department with nausea vomiting right upper quadrant pain. His last drink was 1am on 12/16/24. He repo rted drinking 1/2 gallon of liquor per day. His ED evaluation was significant for ARNALDO with Cr 1.4, bilirubin of 2, and lactate of 4.4. CT A/P was did not show significant acute findings. His magnesium and phosphorus were low and his CPK was 374. His ethanol was negative and his CIWA score was up to 20 and after a dose of diazepam he was started on phenobarbital protoscol. He slept after loading with phenobarbital and did not require additional dosing over the next 36 hours. His electrolytes normalized and ARNALDO and anion gap resolved. His bilirubin decreased to 1.1, and his CPK down to 317. He met with a assistant women's tennis coach with plans for daily follow up. After discussion of medication options, he elected to try naltrexone as well as disulfuram, with plans to have his mom give him the disulfuram in the morning. He was given oral folate, thiamine, and MVI. He had a cystic lesion in his testicle seen on CT that was not new. He also had 5-10 RBC in his urine. These issues should be followed. Smoking cessation was discussed and he used a nicotene patch while here. He needs follow up with a PCP in 1-2 weeks Home Meds and New Rx's Prescriptions: New multivitamin [Multiple Vitamins] Tablet 1 tab PO DAILY 90 Days Qty: 90 0RF nicotine 21 mg/24 hr Patch 24 Hour 21 mg transdermal DAILY PRN PRN60 Days Qty: 60 0RF folic acid 1 mg Tablet 1 mg PO QAM 30 Days Qty: 30 0RF thiamine mononitrate (vit B1) [Vitamin B-1 (mononitrate)] 100 mg Tablet 100 mg PO DAILY 14 Days Qty: 14 0RF naltrexone 50 mg tablet 50 mg PO DAILY Qty: 30 2RF disulfiram 250 mg tablet See Rx Instructions .ROUTE .COMPLEX Qty: 45 2RF Rx Instructions: 2 tablets po daily x 2 weeks, then one tablet po daily Discharge Instructions Instructions: Alcohol Use Disorder (DC) Additional Instructions: We sent some vitamins as well as two medications to help you not drink. The naltrexone helps lower cravings. You can take this even if you relapse and drink a little. The disulfuram will make you sick if you drink alcohol after taking it. You should have your family member watch you take it in the morning so you aren't tempted to drink later in the day. Follow up with the recovery center as planned. you can use the nicotene patches for helping not smoke as well. Activity:: Activity as Tolerated Equipment/Supplies:: No Equipment Needed Diet:: As Tolerated Discharge Orders Discharge Orders: Discharge Order (Routine); Ordered 12/18/24 Ordered By: Richard Ching DS: Summary Time Spent with Patient providing and/or coordinating discharge services: Greater than 30 minutes Status at Discharge Functional status at discharge: independent ambulation Overall status at discharge: patient is back to baseline Mental Status: mental status grossly normal Speech and Movement: speech and movement normal Mood: congruent mood Affect: normal affect Exam Narrative Exam Narrative: Comfortable appearing young gentleman laying in bed in no acute distress, ANO x 4, heart regular rhythm, lungs, auscultation bilaterally, abdomen soft, nontender, nondistended. extremiites without edema, warm, no cyanosis. No tremor. No hallucinations. Psych Mental Status: mental status grossly normal Speech and Movement: speech and movement normal Mood: congruent mood Affect: normal affect DS: Data Vitals/I&O Vitals and I&O: Vital Signs Temperature 36.8 C 12/18/24 09:35 Temperature Source Temporal Artery Scan 12/17/24 08:15 Pulse 51 L 12/18/24 09:35 Pulse 87 12/18/24 09:35 Respiratory Rate 15 12/18/24 09:35 Respiratory Effort Normal 12/16/24 21:37 Respiratory Depth Normal 12/16/24 21:37 Respiratory Pattern Normal 12/16/24 21:37 Blood Pressure 119/79 12/18/24 09:35 Blood Pressure Mean 89 12/18/24 09:35 Blood Pressure Position Supine 12/16/24 21:37 Pulse Oximetry 96 12/17/24 16:00 Oxygen Delivery Method Room Air 12/17/24 14:54 Oxygen Flow Rate 0 12/17/24 14:54 Pain Level 0 12/16/24 21:37 Intake & Output 12/17/24 12/18/24 12/18/24 23:59 11:59 23:59 Intake Total 200 / 1910.8 1247.3 / 1247.3 Output Total 150 / 350 Balance 50 / 1560.8 1247.3 / 1247.3 Weight 74.3 kg Intake: IV 1007.3 / 1007.3 Oral 200 / 1070 240 / 240 Output: Urine 150 / 350 Other: Urine Color Dark [place] Urine Appearance Clear Comment Pt reports void in M/S toilet, not visualized. No abnormal s/s reported during void Data Completed and Pending Labs on day of discharge: Labs from last 24 hours 12/18/24 05:52 Sodium 139 Potassium 3.6 Chloride 101 Carbon Dioxide 30.4 Anion Gap 7.6 BUN 10 Creatinine 1.0 Est GFR (CKD-EPI 2020) 110.50 Glucose 102 Calcium 9.6 Phosphorus 4.1 Magnesium 2.1 Total Bilirubin 1.1 H AST 32 ALT 25 Alkaline Phosphatase 95 Creatine Kinase 317 H Total Protein 7.7 Albumin 3.8 PFSH All Active Problems (Updated 12/17/24 @ 13:36 by Richard Ching) Alcohol use disorder, severe, dependence (Acute) ARNALDO (acute kidney injury) (Acute) Lactic acidosis (Acute) Hypomagnesemia (Acute) Hypophosphatemia (Acute) Alcohol withdrawal (Acute) Marijuana use (Acute) Difficulty controlling anger (Acute) Constipation (Acute) Alcohol use (Chronic) Caught drinking alcohol in the spring 2020- expelled from [facility]; was arrested and entered into diversion (will be meeting with counselor instead of paying fines) Family discord (Chronic) Engages in vaping (Chronic) Wheezing (Acute) Varicocele (Chronic) Followed by Urology yearly- last visit Apr 2020; no surgical intervention recommended at this time Learning difficulty (Chronic 01/19/12) Unclear if he has had an IEP for additional instruction; failed 10th grade and was expelled from [employer] [facility] Lactose intolerance (Chronic 11/21/17) Dental caries (Chronic 01/19/12) Surgical History Appendectomy Appendicitis History of Surgical Procedure a. Appendectomy lap. 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 [employer] Pets and animals: Yes (Puppy.) Pets and animals: dog(s) Current gender identity: male Seatbelt use: always Helmet use: Yes Fire extinguisher in home: Yes Carbon monox detector in home: Yes Firearms in home: Yes Firearms unloaded and locked: Yes Do you feel safe at home: Yes Do you feel safe in your relationship?: Yes Time Spent with Patient Time Spent with Patient: <45 minutes Time was spent: preparing to see the patient(eg.review tests), obtaining and/or reviewing separately otained hiistory, ordering medications,tests, procedures, referring, communicating with other health critical care nurse specialist, indepentently interpreting results, counseling the patient and care coordination
--- NOTE | 2024-12-18 13:27 | W.NUTRFU ---
Date of service: 12/18/24 Time of Service: 13:27 Nutrition Note NOTE: Brief visit with patient today as he is anticipating discharge later. He was in the ICU due to medical complications of etoh w/drawal. Denies changes in weight. Reports low appetite still - lunch tray untouched but has had a few cheese its at bedside that were brought in for him. Let patient know I would consider him low nutrition risk outside of altered metabolism and increased nutrition needs from his etoh use. Pt declined outpatient services and reports no questions regarding his nutrition needs at this time. No aggresssive nutrition intervention planned at this time as patient has received adequate intervention through repletion of folate, thiamine, magnesium, and has been ordered for MVI Time Spent in Nutritional Counseling and Treatment: 5 min
== END 2024-12-18 14:00 | disposition home or self-care (01) | DRG 897 ==
LOC: ER 18:48 → ICU 20:11
PROVIDERS: Admitting Provider Family Medicine; Emergency Provider Physician Assistant; Responsible Provider Family Medicine; Visit Provider Family Medicine
DX: F10.239 Alcohol dependence with withdrawal, unspecified (principal); N17.9 Acute kidney failure, unspecified; E87.21 Acute metabolic acidosis; F12.90 Cannabis use, unspecified, uncomplicated; E83.39 Other disorders of phosphorus metabolism; E83.42 Hypomagnesemia; R11.2 Nausea with vomiting, unspecified; R10.11 Right upper quadrant pain; E86.0 Dehydration; I86.1 Scrotal varices; Z63.8 Other specified problems related to primary support group; K59.00 Constipation, unspecified; R45.4 Irritability and anger
CPT/HCPCS: 00123; 36415; 80048; 80053; 80076; 80307; 82550; 82805; 83690; 85027; 93005; 96365; 96367; 96375; 99285; J1650; 74177; 80320; 80329; 81003; 81015; 82140; 82150; 83605; 83735; 84100; 84484; 85025; 93010; 99223; 99232; 99238; J0131; J1885; J2405; J2560; J3360; J3411; J3475; J3490